=== PATIENT | female | born 2000 | race Caucasian/White ===

== ENCOUNTER → 2021-04-07 | Outpatient (CLI) | payer OTHER ==
[~2021-04-07] MED LIST: TAMIFLU75 MG PO
== END ==
LOC: KOH-I 11:43
DX: R06.02 Shortness of breath (principal)
CPT/HCPCS: 71046

== ENCOUNTER 2021-11-29 11:08 | Inpatient (IN) | payer OTHER ==
[2021-11-29 12:39] LABS: HEMOGLOBIN 10.5 gm/dl (12.3-15.3); RED BLOOD COUNT 4.39 M/UL (4.00-5.10); WHITE BLOOD COUNT 13.5 K/UL (4.5-11.0)
[2021-11-29] MEDS ORDERED: HYDROCODON-ACE1 EAC4 PO (16:43)
[2021-11-29] MEDS ORDERED: COLACE100 MG PO (16:43)
[2021-11-29] MEDS ORDERED: IBU600 MG PO (16:43)
[2021-11-30 06:07] LABS: HEMOGLOBIN 10.2 gm/dl (12.3-15.3)
[2021-12-01] MEDS ORDERED: MACROBID 100 M100 MG PO (11:31)
== END 2021-12-01 14:32 | disposition home or self-care (01) | DRG 787 ==
LOC: GENOP 11:08 → OB 12:16
PROVIDERS: ADMIT Obstetrics & Gynecology
PROC: 4A1HXCZ Monitoring of Products of Conception, Cardiac Rate, External Approach (ICD-10-PCS; 2021-11-29)
PROC: 10D00Z1 Extraction of Products of Conception, Low, Open Approach (ICD-10-PCS; principal; 2021-11-29 15:48)
DX: O34.211 Maternal care for low transverse scar from previous cesarean delivery (principal); O99.324 Drug use complicating childbirth; Z3A.39 39 weeks gestation of pregnancy; Z37.0 Single live birth; O99.52 Diseases of the respiratory system complicating childbirth; J45.909 Unspecified asthma, uncomplicated; F15.10 Other stimulant abuse, uncomplicated
CPT/HCPCS: 36415; 80307; 81001; 82800; 85014; 85018; 85025; 87077; 87086; 87186; C9113; J1170; J1580; J2370; J2405; J2590; J2704; J7120; U0002

== ENCOUNTER 2021-12-17 13:21 | Emergency (ER) | payer OTHER ==
[~2021-12-17 13:21] MED LIST changes: +COLACE100 MG PO; +HYDROCODON-ACE1 EAC4 PO; +IBU600 MG PO; +MACROBID 100 M100 MG PO
== END 2021-12-17 17:15 | disposition home or self-care (01) ==
LOC: ER1 13:21
DX: U07.1 COVID-19 (principal)
CPT/HCPCS: 71045; 99283; U0002